=== PATIENT | female | born 1985 | race African-American/Black ===

== ENCOUNTER 2021-04-09 11:04 | Day surgery (SDC) | payer BC, SELFPAY ==
[~2021-04-09] VITALS: Ht 167.6 cm; Wt 69.4 kg
[~2021-04-09 11:04] MED LIST: ACETAMINOPHEN I.V. 1000 MG 100 ML IV ONE
[2021-04-09] MEDS ORDERED: MIDAZOLAM HCL 5 MG/5 ML VIAL IVP ONE (14:03)
[2021-04-09] MEDS ORDERED: NS 1000 ML IV.SOLN IV ONE (14:03)
[2021-04-09] MEDS ORDERED: WATER FOR IRRIGATION,STERILE 1,000 ML IRRIG.SOLN IR ONE (14:03)
[2021-04-09] MEDS ORDERED: NS IRRIG SOLN 1000 ML IR ONE (14:03)
[2021-04-09] MEDS ORDERED: ONDANSETRON HCL 4 MG/2 ML VIAL IVP ONE (14:03)
[2021-04-09] MEDS ORDERED: ePHEDrine sulfate 50 MG/ML VIAL IVP ONE (14:03)
[2021-04-09] MEDS ORDERED: SEVOFLURANE 15 MIN GAS INH ONE (14:03)
[2021-04-09] MEDS ORDERED: LIDOCAINE/EPI MPF 1%1:200000 30 ML VIAL INJ ONE (14:03)
[2021-04-09] MEDS ORDERED: DEXAMETHASONE SOD PHOSPHATE 4 MG/ML VIAL IVP ONE (14:03)
[2021-04-09] MEDS ORDERED: OXYMETAZOLINE HCL 0.05% NASAL SPRAY NS ONE (14:03)
[2021-04-09] MEDS ORDERED: SUGAMMADEX SODIUM 200 MG/2 ML VIAL IV ONE (14:03)
[2021-04-09] MEDS ORDERED: PROPOFOL 200MG/ 20ML VIAL (DIPRIVAN) IV ONE (14:03)
[2021-04-09] MEDS ORDERED: fentaNYL CITRATE 250 MCG/5 ML AMP IV ONE (14:03)
[2021-04-09] MEDS ORDERED: ROCURONIUM BROMIDE 10 MG/ML (ZEMURON) IV ONE (14:03)
[2021-04-09] MEDS ORDERED: HYDROmorphone 1 MG/ML INJ. CARTRIDGE IVP PRN ×2 (14:45)
[2021-04-09] MEDS ORDERED: LR 1,000 ML IV SCH (14:45)
[2021-04-09] MEDS ORDERED: METOCLOPRAMIDE HCL 10 MG/2 ML VIAL IVP PRN (14:45)
[2021-04-09] MEDS ORDERED: MEPERIDINE HCL/PF 25 MG/ML DISP.SYRIN IVP PRN (14:45)
[2021-04-09] MEDS ORDERED: LABETALOL 100 MG/ 20ML VIAL IVP PRN (14:45)
[2021-04-09] MEDS ORDERED: hydrALAZINE HCL 20 MG/ML VIAL IVP PRN (14:45)
[2021-04-09] MEDS ORDERED: MIDAZOLAM HCL 2 MG/2 ML VIAL (VERSED) IVP PRN (14:45)
[2021-04-09] MEDS ORDERED: HYDROmorphone 2 MG/ML VIAL ONE (16:29)
[2021-04-09 17:49] VITALS: BP_SYST 145
== END 2021-04-09 18:10 | disposition home or self-care (01) ==
LOC: SDS 11:04 → SMU 11:05 → SDS 18:10
PROVIDERS: ATTEND Otolaryngology
DX: J34.89 Other specified disorders of nose and nasal sinuses (principal); D38.5 Neoplasm of uncertain behavior of other respiratory organs; J34.2 Deviated nasal septum; J30.1 Allergic rhinitis due to pollen; J32.4 Chronic pansinusitis; Z79.899 Other long term (current) drug therapy
CPT/HCPCS: 30140; 31255; 31256; 31296; 36415; 84703; 87070; 87075; 87101; 87426; 88305; 88311; C1726; J0131; J1100; J1170; J2250; J2405; J2704; J3010; J3490; J7030; 87186-TC; 88304